=== PATIENT | male | born 1980 | race Caucasian/White ===

== ENCOUNTER 2024-09-27 08:45 | Emergency (ER) | payer BC, SELFPAY ==
--- NOTE | ~2024-09-27 | CT_ITS ---
EXAMINATION: CT abdomen pelvis wo con DATE: 09/27/2024 09:51 INDICATION: Evaluate for kidney stone TECHNIQUE: Computed tomography (CT) of the abdomen and pelvis was performed without intravenous contr ast. The dose-length product was 347.25 mGy-cm. Automated exposure control and iterative reconstructi on technique were employed. COMPARISON: CT dated 10/18/2015. FINDINGS: There is a 4 mm right mid ureteral stone at the L5 level with mild hydronephrosis. There is periureteral edema. 3 mm right middle lobe nodule, likely benign. Otherwise, lung bases unremarkable. The liver, spleen, pancreas, adrenal glands and left kidney are unremarkable. There are gallstones. Colonic diverticulos is without evidence for diverticulitis. No significant vascular abnormality. No lymphadenopathy. IMPRESSION: 1. Right mid ureteral stone measuring 4 mm with mild hydronephrosis and periureteral edema. 2: Cholelithiasis. Reviewed, dictated and finalized at location A. IMPRESSION: 1. Right mid ureteral stone measuring 4 mm with mild hydronephrosis and periure teral edema. 2: Cholelithiasis.
--- NOTE | ~2024-09-27 | XR_ITS ---
XR abdomen/kub 1V 09/27/2024 11:41 INDICATION: Kidney stones TECHNIQUE: KUB COMPARISON: None FINDINGS: Bowel gas pattern is normal. There is no evidence of free air, mass, organomegaly, ascites or obstruction. No abnormal calculi are seen. The bones appear intact. IMPRESSION: 1: No acute abdominal abnormality identified. Reviewed, dictated and finalized at location A.
[2024-09-27 09:01] VITALS: BP 134/94; PULSE 84; RESP 16; TEMP 36.8; O2SAT 99
[2024-09-27 09:12] LABS: Hematocrit 37.8 % (42.0-52.0); Hemoglobin 13.2 g/dL (14.0-18.0); Immature Granulocyte Percent A 0.3 % (0-0.5); Lymphocytes Absolute Auto 1.63 K/mm3 (0.9-3.2); Mean Corpuscular HGB Conc 34.9 g/dl (32-36); Mean Corpuscular Hemoglobin 32.9 pg (26-34); Mean Corpuscular Volume 94.3 fl (80-100); Nucleated Red Blood Cells Absolute Auto 0.000 K/mm3 (0.0-0.012); Nucleated Red Blood Cells Perc 0.0 % (0.0-0.2); Platelet Count Result 185 k/mm3 (150-375); Red Blood Count 4.01 M/mm3 (4.6-6.20); White Blood Count 7.5 K/mm3 (4.5-10.0)
[2024-09-27 09:18] LABS: Add Urine Microscopic? YES; Appearance Urine Clear (Clear); Glucose Urine UA Negative (Negative); Leukocyte Esterase Ur Negative LEU/UL (Negative); Nitrate Urine Negative (Negative); Non Pathogenic Casts 0-2; Specific Grav Ur 1.031 (1.001-1.035)
[2024-09-27 09:24] LABS: Alanine Aminotransferase 65 U/L (6-50); Albumin Level 4.4 g/dL (3.5-5.1); Alkaline Phosphatase 65 U/L (38-126); Anion Gap 7 mmol/L (4-12); Aspartate Amino Transferase 62 U/L (17-59); Bilirubin,Total 1.4 mg/dL (0.2-1.3); Blood Urea Nitrogen 13 mg/dL (9-20); Calcium 9.4 mg/dL (8.4-10.2); Carbon Dioxide 25 mmol/L (22-30); Chloride 105 mmol/L (98-107); Estimated CRCL calculation 60 ml/min; Estimated Glomerular Filt Rate > 60; Glucose 108 mg/dL (65-110); Potassium 4.1 mmol/L (3.4-5.0); Sodium 137 mmol/L (137-145); Total Protein 7.9 g/dL (6.3-8.2)
--- NOTE | 2024-09-27 09:45 | ED.ABDPAIN ---
HPI - Abdominal Pain General Chief Complaint: Abdominal Pain Stated Complaint: right sided kidney stone Time Seen by Provider: 09/27/24 09:06 History of Present Illness HPI narrative: Patient is a 44-year-old male who presents to the ER with complaints of right flank pain that started last Friday, 6 days ago. He reports his pain is intermittent. Patient reports on evening the pain was excruciating and he vomited. He endorses intermittent hematuria and reports he had a fever last night. Patient reports he had a kidney stone 9 years ago, but denies any other medical history relevant to this ER visit. He denies any burning/urgency with urination, abdominal pain, or lower extremity swelling. Related Data Allergies Allergy/AdvReac Type Severity Reaction Status Date / Time No Known Allergies Allergy Verified 09/27/24 09:00 Review of Systems Review of Systems: All systems reviewed & are unremarkable except as noted in HPI and below PMFSH Past Medical History Medical History BMI 27.0-27.9,adult BMI 26.0-26.9,adult Family History Family History Father Hypertension Mother No problems noted. Sibling No problems noted. 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 HEAD: Normocephalic, atraumatic. NECK: Supple. No adenopathy, no masses. RESPIRATORY: Airway patent, respirations nonlabored. Clear to auscultation bilaterally, no rales, rhonchi, wheezing. CARDIOVASCULAR: Regular rate and rhythm without murmurs, rubs, or gallops. Peripheral pulses 2+ and equal bilaterally. + R CVA tenderness ABDOMINAL: Soft, nontender, nondistended, no hepatosplenomegaly. Normoactive BS. MUSCULOSKELETAL: Moves all extremities. Strength/ROM intact without gross deformities. SKIN: Warm, dry, normal color. No rashes. NEURO: A&O X3. Speech clear. Cranial nerves II-XII intact. No ataxic movements. PSYCHIATRIC: Appropriate mood and affect. Normal interaction. Course Vital Signs Vital signs: Vital Signs Temperature 36.8 C 09/27/24 09:01 Pulse Rate 84 09/27/24 09:01 Respiratory Rate 16 09/27/24 09:01 Blood Pressure 134/94 H 09/27/24 09:01 Pulse Oximetry 99 09/27/24 09:01 Oxygen Delivery Room Air 09/27/24 09:01 Temperature 36.8 C 09/27/24 09:01 Pulse Rate 84 09/27/24 09:01 Respiratory Rate 16 09/27/24 09:01 Blood Pressure 134/94 H 09/27/24 09:01 Pulse Oximetry 99 09/27/24 09:01 Oxygen Delivery Room Air 09/27/24 09:01 MDM - Abdominal Pain MDM Narrative Medical decision making narrative: Patient is a 44-year-old male who presents to the ER with complaints of right flank pain that started last Friday, 6 days ago. He reports his pain is intermittent. Patient reports on evening the pain was excruciating and he vomited. He endorses intermittent hematuria and reports he had a fever last night. Patient reports he had a kidney stone 9 years ago, but denies any other medical history relevant to this ER visit. He denies any burning/urgency with urination, abdominal pain, or lower extremity swelling. Patient reports he is already taking Flomax at home. Labs Ordered: CBC, CMP, UA Imaging Ordered: CT abdomen pelvis, KUB Medications Ordered: 1 L normal saline IV bolus, 4 mg IV Results: Patient's CBC indicates red blood cell count of 4.01, hemoglobin of 13.2, hematocrit of 37.8%. His CMP indicates a total bilirubin of 1.4, AST 62, an ALT of 65. Pt's CT scan indicates Right mid ureteral stone measuring 4 mm with mild hydronephrosis and periureteral edema. 2: Cholelithiasis. Diagnosis: Right 4 mm kidney stone Consults: 1100-Urology, spoke with Dr. Dickson, who reports pt can be discharged home and follow-up with him as an outpatient. He requests pt be discharged home with a prescription for Flomax (pt is already taking) and pain control. Pt can call [phone] for a follow-up appointment. He also requests pt receive a KUB before he is discharged. Patient Education/Shared MDM: Results of lab work and imaging shared with patient. He endorses improvement of symptoms following medication administration. Patient strongly advised to maintain hydration status upon discharge and follow-up with Urology as soon as possible. He will be discharged home with a prescription for [place]. Strict return precautions provided. Patient verbalized understanding and is in agreement with plan. Vital signs stable at time of discharge. All questions answered. Differential Diagnosis Differential diagnosis: Likely abdominal pain, calculus of kidney, diverticulitis and gastroenteritis Lab Data Attestation: I reviewed the patient's lab results. 09/27/24 09:03 09/27/24 09:03 Labs: Lab Results 09/27/24 Range/Units 09:03 WBC 7.5 (4.5-10.0) K/mm3 RBC 4.01 L (4.6-6.20) M/mm3 Hgb 13.2 L (14.0-18.0) g/dL Hct 37.8 L (42.0-52.0) % MCV 94.3 (80-100) fl MCH 32.9 (26-34) pg MCHC 34.9 (32-36) g/dl RDW 11.9 (11.5-14.5) % Plt Count 185 (150-375) k/mm3 MPV 10.5 H (7.4-10.4) fl Immature Gran % (Auto) 0.3 (0-0.5) % Neut % (Auto) 65.0 (45.5-73.1) % Lymph % (Auto) 21.6 (18.3-44.2) % [place] % (Auto) 11.6 H (2.6-8.5) % Eos % (Auto) 0.8 (0-4.4) % Baso % (Auto) 0.7 (0.2-1.2) % Lymph # (Auto) 1.63 (0.9-3.2) K/mm3 [place] # (Auto) 0.9 H (0.1-0.6) K/mm3 Eos # (Auto) 0.1 (0-0.3) K/mm3 Baso # (Auto) 0.1 (0.0-0.1) K/mm3 Abs Immat Gran (auto) 0.02 (0.00-0.031) K/mm3 Absolute Neuts (auto) 4.9 (1.3-6.7) K/mm3 Absolute Nucleated RBC 0.000 (0.0-0.012) K/mm3 Nucleated RBC % 0.0 (0.0-0.2) % Sodium 137 (137-145) mmol/L Potassium 4.1 (3.4-5.0) mmol/L Chloride 105 (98-107) mmol/L Carbon Dioxide 25 (22-30) mmol/L Anion Gap 7 (4-12) mmol/L BUN 13 (9-20) mg/dL Creatinine 1.20 (0.7-1.3) mg/dL Estim Creat Clear Calc 60 ml/min Estimated GFR > 60 (59 - ) Glucose 108 (65-110) mg/dL Calcium 9.4 (8.4-10.2) mg/dL Total Bilirubin 1.4 H (0.2-1.3) mg/dL AST 62 H (17-59) U/L ALT 65 H (6-50) U/L Alkaline Phosphatase 65 (38-126) U/L Total Protein 7.9 (6.3-8.2) g/dL Albumin 4.4 (3.5-5.1) g/dL Urine Color Dark yellow (Yellow) Urine Appearance Clear (Clear) Urine pH 5.5 (5.0-9.0) Ur Specific [place] 1.031 (1.001-1.035) Urine Protein 1+ H (Negative) mg/dL Urine Glucose (UA) Negative (Negative) mg/dL Urine Ketones Trace H (Negative) mg/dL Ur Blood (Man) 1+ H (Negative) Urine Nitrate Negative (Negative) Urine Bilirubin Negative (Negative) Urine Urobilinogen 1.0 (<2.0) mg/dL Leukocyte Esterase Rfl Negative (Negative) [place]/UL Urine RBC 21-50 H (0-2) /hpf Urine WBC 0-5 (0-3) /hpf Ur Squamous Epith Cells None seen (Few) /hpf Urine Bacteria None seen /hpf Urine Casts 0-2 Imaging Data Attestation: I personally reviewed and interpreted this imaging study as follows: Radiologist's impression: ITS Impressions Abdomen/Pelvis CT 09/27/24 10:21 IMPRESSION: 1. Right mid ureteral stone measuring 4 mm with mild hydronephrosis and periureteral edema. 2: Cholelithiasis. Abdomen X-Ray 09/27/24 11:47 IMPRESSION: 1: No acute abdominal abnormality identified. Discharge Plan Discharge Clinical Impression: Kidney stone on right side, Acute right flank pain Patient Disposition: Home Condition: Stable Instructions: Antibiotic Form, Kidney Stones (ED), How to Strain Your Urine (ED), Flank Pain (ED) Additional Instructions: Please return to the ER with any worsening symptoms. Follow-up with primary care provider as soon as possible. Take all medications as prescribed, including regularly scheduled medications. You may take [place] as needed for pain control. Please continue taking your Flomax every day. Patient Language: Senegalese Prescriptions: New hydrocodone-acetaminophen 5-325 mg tablet 1 tablet PO Q6H PRN (Reason: pain) Qty: 14 0RF No Action tamsulosin [Flomax] 0.4 mg capsule 0.4 mg PO DAILY Qty: 14 0RF Rx Instructions: take 30 min after the same meal each day Follow-up/Referrals: Kip Bridges MD [Primary Care Provider] - Time of Disposition: 12:01
[2024-09-27] MEDS: SODIUM CHLORIDE 0.9% IV 1,000 ML 999 ML IV CONT (09:58)
[2024-09-27] MEDS: MORPHINE SULFATE (*CRX) 4 MG/ML INJ IV PUSH (10:22)
== END 2024-09-27 12:20 | disposition home or self-care (01) ==
PROVIDERS: Emergency Medicine; Emergency Provider Registered Nurse; PCP Family Medicine
DX: N13.2 Hydronephrosis with renal and ureteral calculous obstruction (principal); K80.20 Calculus of gallbladder without cholecystitis without obstruction
CPT/HCPCS: 36415; 74018; 74176; 80053; 81001; 85025; 96361; 96374; 99284; J2270; J7030

== ENCOUNTER 2024-10-04 09:43 | Outpatient (CLI) | payer BC, SELFPAY ==
--- NOTE | ~2024-10-04 | XR_ITS ---
EXAMINATION: XR abdomen/kub 1V DATE: 10/04/2024 10:07 INDICATION: Right ureteral stone TECHNIQUE: 2 images were obtained COMPARISON: None. FINDINGS: There is a 2 mm calcification in the right hemipelvis which may represent a phlebolith or distal uret eral stone. Moderate amount of air and stool in nondilated large bowel. Small amount of air in nondilated small b owel. IMPRESSION: 1. Nonspecific abdomen with a moderate amount of stool. If symptoms persist or worsen, consider a derek rt-term follow-up study or CT of the abdomen and pelvis for further assessment Reviewed, dictated and finalized at location A. IMPRESSION: 1. Nonspecific abdomen with a moderate amount of stool. If symptoms persist or worsen, consider a short-term follow-up study or CT of the abdomen and pelvis f or further assessment
== END 2024-10-04 09:44 | disposition home or self-care (01) ==
PROVIDERS: PCP Urology; Visit Provider Urology
DX: N20.1 Calculus of ureter (principal); R10.9 Unspecified abdominal pain
CPT/HCPCS: 74018

== ENCOUNTER 2024-10-06 11:51 | Outpatient (CLI) | payer BC, SELFPAY ==
--- NOTE | ~2024-10-06 | CT_ITS ---
EXAMINATION: CT abdomen pelvis wo con DATE: 10/06/2024 12:11 INDICATION: Right ureteral stone TECHNIQUE: Computed tomography (CT) of the abdomen and pelvis was performed without intravenous contrast. The dose-length product was 217.86 mGy-cm. COMPARISON: 09/27/2024 FINDINGS: Gallstones, unchanged. Liver, spleen, adrenal glands, left kidney, pancreas are unremarkable. Abdominal aorta is not aneurysmal. Redemonstration of a 4 mm right mid ureteral stone which is in a similar location as compared to the study from 09/27/2024. Grossly stable mild right-sided hydronephrosis and periureteral edema. No ureteral or bladder calculi. No bladder calculi. Bladder is unremarkable. Prostate gland is enlarged and partially calcified, unchanged. No enlarged lymph nodes in the abdomen or pelvis identified. Moderate amount of stool. No colitis. No appendicitis. IMPRESSION: 1. Redemonstration of a 4 mm right mid ureteral stone which is in a similar location as compared to the study from 09/27/2024. Grossly stable mild right- sided hydronephrosis and periureteral edema. 2. Cholelithiasis. Reviewed, dictated and finalized at location A. IMPRESSION: 1. Redemonstration of a 4 mm right mid ureteral stone which is in a similar loc ation as compared to the study from 09/27/2024. Grossly stable mild right-sided hydronephrosis and periureteral edema. 2. Cholelithiasis.
== END 2024-10-06 11:52 | disposition home or self-care (01) ==
PROVIDERS: PCP Family Medicine; Visit Provider Urology
DX: N20.1 Calculus of ureter (principal); K80.20 Calculus of gallbladder without cholecystitis without obstruction; N13.30 Unspecified hydronephrosis
CPT/HCPCS: 74176

== ENCOUNTER 2024-10-08 01:07 | Day surgery (SDC) | payer BC, SELFPAY ==
--- NOTE | 2024-10-07 11:33 | SUR.PREOP ---
Report to the Outpatient Waiting Room, entrance under the green pavilion located off [facility], at time __945____ on date ___10/08/24____. Planned Procedure Time: ____1145____.? Time changes happen often and if your time is changed the preop area will call you the afternoon before. - You and your visitor will be asked to self-screen and do not enter if you have any COVID symptoms. Please call surgeon if you need to reschedule. - A mask is optional within the hospital at this time. Patients may have clear liquids (water, carbonated beverages, clear teas, apple juice) until 3 hours prior to surgery with a maximum of 20 ounces. - No food from midnight until time of surgery and no smoking, or chewing tobacco (or any form of nicotine). No chewing gum, candy or mints. Take only the following medications with a SIP of water on the morning of surgery: nothing DO NOT STOP ANY OF YOUR OTHER PRESCRIPTION MEDICATIONS PRIOR TO SURGERY EXCEPT THE FOLLOWING Hold all vitamins and supplements for 3 days per anesthesiologist. Medications to discontinue per physician NA Please no make-up, nail english, hairspray, perfume, deodorant, or body powder the day of surgery.? No jewelry (including any body piercings) or valuables the day of surgery, leave them at home.? Please take a shower or bath the night before, or the morning of, surgery with an antibacterial soap.? Wear comfortable, loose fitting clothing.? Children are encouraged to wear pajamas. - Jewelry must be removed prior to entering the operating room.? Rings and piercings that are not removed may be cut off. - The hospital will not accept responsibility for valuables.? - Please leave all valuables, including medications, at home the day of surgery. If you are going home after surgery, a licensed lift driver must drive you home.? - NO public transportation without another adult if you receive anesthesia. - We recommend that an adult stay with you for 24 hours following discharge. - We also recommend that you do not drive, make important decision, drink alcoholic beverages, or take any drugs that were not prescribed by your health care provider for at least 24 hours after your discharge time. Follow any additional instructions given to you from your surgeon. Telephone instructions given to __patient Corbin and asked if any additional questions and then verbalized understanding. Patient advised to call surgeon office or pre surgery nurse liaison [phone] if any additional questions.
[2024-10-07 11:37] VITALS: BMI 27.3
[2024-10-08] VITALS (7 sets, daily range): BP systolic 101–129; BP diastolic 63–78; PULSE 48–69; RESP 12–16; TEMP 36.4–36.9; O2SAT 98–100; BMI 27.5
--- NOTE | ~2024-10-08 | XR_ITS ---
EXAMINATION: XR abdomen/kub 1V DATE: 10/08/2024 09:56 INDICATION: ESWL TECHNIQUE: A supine view of the abdomen on 2 radiographs was obtained. COMPARISON: 10/04/2024 FINDINGS: Small opacities in the lower lungs. Moderate amount of air and stool in nondilated large bowel. Small amount of air in nondilated small bowel. No radiographic evidence for renal, ureteral or bladder calculi. IMPRESSION: 1. No radiographic evidence for renal, ureteral or bladder calculi. 2. Nonspecific abdomen with a moderate amount of stool. Reviewed, dictated and finalized at location Q.
--- NOTE | 2024-10-08 06:22 | WPDHPUPDATE1 ---
History and Physical Update Update Date/Time: 10/08/24 06:22 History and Physical has been reviewed, including an updated exam of the patient. There are NO changes in the patient's condition. Risks, benefits, and alternatives have been discussed and questions answered. Patient agrees to proceed with procedure.
[2024-10-08 10:51] LABS: INR 1.0; Prothrombin Time 12.9 Seconds (11.1-14.7)
[2024-10-08 10:52] LABS: Partial Thromboplastin Time 26.2 Seconds (22.3-36.8)
--- NOTE | 2024-10-08 10:53 | WPDANESEPPF ---
Anes - Initial Pre Proc Eval Procedure: Operation Date: 10/08/24 11:45 Proposed Procedures p Right Extracorporeal Shock Wave Lithotripsy, - Paul Murrell MD s Possible Conversion, Cystoscopy, Right Ureteroscopy, Possible Right Retrograde Pyelogram,Possible Right Stone Extraction, Possible Right Stent Placement, Possible Holmium Laser - Paul Murrell MD Date/Time: 10/08/24 10:53 Surgeon: Paul Murrell MD Pre Op Diagnosis: right ureteral stone Patient Data Age: 44 Gender: M Height: 1.65 m Weight: 74.54 kg Allergies Allergy/AdvReac Type Severity Reaction Status Date / Time No Known Allergies Allergy Verified 10/07/24 14:17 Home Medications ?Medication ?Instructions ?Recorded ?Confirmed ?Type tamsulosin 0.4 mg capsule (Flomax) 0.4 mg PO DAILY #14 caps 09/25/24 10/07/24 Rx ketorolac 10 mg tablet 10 mg PO Q8H PRN pain 10/07/24 10/07/24 History Laboratory Tests 10/08/24 10:16 PT 12.9 Seconds (11.1-14.7) INR 1.0 APTT 26.2 Seconds (22.3-36.8) Patient hx anesthesia problems: none Family hx anesthesia problems: none Results Review: All pre-operative results and documents have been reviewed as part of the pre-operative evaluation. [facility] Past Medical History Medical History Blood in stool Gallstones Kidney stone BMI 27.0-27.9,adult BMI 26.0-26.9,adult Family History Family History Father Hypertension Mother No problems noted. Sibling No problems noted. 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 Informed Consent: The patient's anesthetic plan and its attendant risks and benefits were discussed with the patient/family/POA. Questions were solicited and answers provided to the satisfaction of the patient/family/POA.
[2024-10-08] MEDS: ceFAZolin 2 GM in SODIUM CHLORIDE 0.9% IV 50 ML 100 ML IVPB (12:12)
[2024-10-08] MEDS: KETOROLAC 30 MG/ML VIAL (*BKC) IV PUSH (12:27)
--- NOTE | 2024-10-08 12:27 | W.PM.PROC2 ---
Procedure Note - Detailed Date of Procedure 10/08/24 Pre-op Diagnosis Right ureteral stone Post-op Diagnosis Same Procedure Performed Right ureteral ESWL Surgeon Paul Murrell MD Anesthesia General Description of Procedure The patient was brought to the operative suite where he was placed in the supine position on the Dornier lithotripsy table. The focal point of the lithotripter was placed at a 5mm right mid-ureteral calculus. A total of 3000 shocks were delivered at a power setting of 5. There appeared to be good fragmentation of the stone. The patient tolerated the procedure well and was taken to the recovery room in good condition. Drains No Packing No Pathology None sent Complications No immediate complications
[2024-10-08] MEDS: LACTATED RINGERS 1,000 ML 30 ML IV CONT ×2 (13:03→13:24)
== END 2024-10-08 14:22 | disposition home or self-care (01) ==
PROVIDERS: PCP Family Medicine; Visit Provider Urology
PROC: (CPT 50590; principal; 2024-10-08 11:45)
DX: N20.1 Calculus of ureter (principal)
CPT/HCPCS: 50590; 36415; 74018; 85610; 85730; J0690; J1885; J2003; J2250; J2405; J2704; J3010; J7120

== ENCOUNTER 2024-10-19 14:06 | Outpatient (CLI) | payer BC, SELFPAY ==
--- NOTE | ~2024-10-19 | XR_ITS ---
XR abdomen/kub 1V 10/19/2024 14:19 Indication: Right ureteral stone Procedure: KUB Comparison: 10/06/2024 Findings: There is a calcification the right pelvis which is new compared with prior KUB, suspicious for ureteral stone. Bowel gas pattern nonobstructive. No acute osseous abnormality. Lung bases unremarkable. Impression: 1: Possible distal right ureteral stone near the expected location of the UVJ. Reviewed, dictated and finalized at location O. Impression: 1: Possible distal right ureteral stone near the expected location of the UVJ.
== END 2024-10-19 14:07 | disposition home or self-care (01) ==
LOC: MICIMG 14:07
PROVIDERS: PCP Family Medicine; Visit Provider Urology
DX: N20.1 Calculus of ureter (principal)
CPT/HCPCS: 74018